=== PATIENT | female | born 1960 | race Caucasian/White ===

== ENCOUNTER 2017-07-08 03:56 | Emergency (ER) | payer OTHER ==
[2017-07-08] MEDS ORDERED: Albuterol/Ipratropium 3.0-0.5 MG/3 ML Neb Soln NEB ONE ×2 (04:17→05:01)
[2017-07-08] MEDS ORDERED: methylPREDNISolone Sodium Succinate 125 MG/2 ML SDV IM ONE (04:18)
--- NOTE | 2017-07-08 04:25 | EDM.PDOC ---
ED HPI GENERAL MEDICAL PROBLEM - General Chief Complaint: Respiratory Problem Stated Complaint: PERSISTENT COUGH Time Seen by Provider: 07/08/17 04:01 - History of Present Illness INITIAL COMMENTS - FREE TEXT/NARRATIVE: HISTORY AND PHYSICAL: History of present illness: The patient is a 57-year-old female with a history of asthma with which she has not had an asthma attack since she was in high school and presents with a persistent cough of 8 weeks. The patient says that she had a persistent dry cough and felt like she was having some wheezing and tried to deal with it on her own and then proceeded to go to an outside clinic mid May and had a chest x-ray that was read as negative and she was placed on a Z-Christian and prednisone and an albuterol inhaler. The prednisone was 10 mg a day for 7 days. The patient said that initially she felt much better and the symptoms seemed to return. The patient has an internal medicine doctor in [place] with whom she has followed for 10 years and with whom she has not had a conversation about these 8 weeks of symptoms. 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 She's not had a fever vomiting abdominal pain chest pain or shortness of breath but she says that she coughs so much and so hard at night that she can't sleep very well. She has been trying to hydrate and has no cardiac history no leg swelling or edema. The patient says that she feels like this is still her asthma and it is not improving. Patient denies any history of seasonal allergies or hayfever. The patient is only using an albuterol inhaler and does not have a spacer to get better delivery and she is on no preventative. Review of systems: As per history of present illness and below otherwise all systems reviewed and negative. Past medical history: As per history of present illness and as reviewed below otherwise noncontributory. Surgical history: As per history of present illness and as reviewed below otherwise noncontributory. Social history: No reported history of drug or alcohol abuse. Family history: As per history of present illness and as reviewed below otherwise noncontributory. Physical exam: General: Well-developed mildly overweight female who is nontoxic and speaks without breathlessness. Vital signs are noted by me HEENT: Atraumatic, normocephalic, pupils reactive, negative for conjunctival pallor or scleral icterus, mucous membranes moist, throat clear, neck supple, nontender, trachea midline. Lungs: Wheezing and diminished breath sounds throughout all garrett with no stridor or work of breathing, breath sounds equal bilaterally, chest nontender. Heart: S1S2, regular rate and rhythm no overt murmurs Abdomen: Soft, nondistended, nontender. NABS Pelvis: Deferred Genitourinary: Deferred. Rectal: Deferred. Extremities: Atraumatic, negative for cords or calf pain. Neurovascular unremarkable. Neuro: Awake, alert, oriented. Cranial nerves II through XII unremarkable. Cerebellum unremarkable. Motor and sensory unremarkable throughout. Exam nonfocal. Diagnostics: Chest x-ray Therapeutics: Duo neb Solu-Medrol spacer and teaching, Phenergan with codeine After the first duo neb patient is moving air much better and feels significantly improved but still having some wheezing. I will plan to give her second duo neb and a dose of Phenergan with codeine prior to discharge. I discussed with the patient and family at bedside at length the need to connect with her provider in [place] as she will be better equipped and able to continue the workup and follow-up on her current care plan. I talked to her about cool mist humidifier at sleep times, using a spacer for better delivery of her inhaler, possible nebulizer machine at home per her providers recommendations, higher dose prednisone therapy and longer taper, and possible testing that she may need to get as an outpatient with her provider pending this care plan. I will give her information about our clinics to follow-up and if she chooses Impression: Acute bronchospasm with history of asthma Definitive disposition and diagnosis as appropriate pending reevaluation and review of above. - Related Data Allergies Allergy/AdvReac Type Severity Reaction Status Date / Time Penicillins Allergy Cannot Verified 07/08/17 04:07 Remember Home Meds: Home Meds Levothyroxine 1 tab PO DAILY 07/08/17 [History] Lisinopril/Hydrochlorothiazide [Lisinopril-HCTZ 10-12.5 MG] 1 tab PO DAILY 07/08 [History] Simvastatin [Zocor] 1 tab PO BEDTIME 07/08/17 [History] Past Medical History Cardiovascular History: Reports: High Cholesterol, Hypertension Respiratory History: Reports: Asthma Endocrine/Metabolic History: Reports: Hypothyroidism - Past Surgical History GI Surgical History: Reports: Appendectomy Social & Family History - Family History Family Medical History: Noncontributory - Tobacco Use Smoking Status *Q: Never Smoker - Recreational Drug Use Recreational Drug Use: No ED ROS GENERAL - Review of Systems Review Of Systems: ROS reveals no pertinent complaints other than HPI. ED EXAM, GENERAL - Physical Exam Exam: See Below (See dictation) Course - Vital Signs Last Recorded V/S: Last Vital Signs Temp 36.6 C 07/08/17 03:56 Pulse 85 07/08/17 03:56 Resp 18 07/08/17 03:56 BP 156/90 H 07/08/17 03:56 Pulse Ox 95 07/08/17 03:56 - Orders/Labs/Meds Orders: Active Orders 24 hr Category Date Time Status Communication Order [RC] STAT Care 07/08/17 04:18 Active RT Aerosol Therapy [RC] ASDIRECTED Care 07/08/17 04:17 Active RT Aerosol Therapy [RC] ASDIRECTED Care 07/08/17 05:01 Active Chest 2V [CR] Stat Exams 07/08/17 04:18 Taken Meds: Medications Discontinued Medications Generic Name Dose Route Start Last Admin Trade Name Freq PRN Reason Stop Dose Admin Albuterol/Ipratropium 3 ml 07/08/17 04:17 07/08/17 04:23 Duoneb 3.0-0.5 Mg/3 Ml NEB 07/08/17 04:18 3 ml ONETIME ONE Administration Albuterol/Ipratropium 3 ml 07/08/17 05:01 07/08/17 05:07 Duoneb 3.0-0.5 Mg/3 Ml NEB 07/08/17 05:02 3 ml ONETIME ONE Administration Methylprednisolone Sodium Succinate 125 mg 07/08/17 04:18 07/08/17 04:29 Solu-Medrol IM 07/08/17 04:19 125 mg ONETIME ONE Administration Promethazine HCl/Codeine 10 ml 07/08/17 04:48 07/08/17 05:06 Phenergan With Codeine PO 07/08/17 04:49 10 ml ONETIME ONE Administration Departure - Departure Time of Disposition: 05:08 Disposition: Home, Self-Care 01 Condition: Good Clinical Impression: Acute bronchospasm, Acute asthma - Discharge Information Referrals: PCP,None [Primary Care Provider] - Forms: ED Department Discharge Additional Instructions: The following information is given to patients seen in the emergency department who are being discharged to home. This information is to outline your options for follow-up care. We provide all patients seen in our emergency department with a follow-up referral. The need for follow-up, as well as the timing and circumstances, are variable depending upon the specifics of your emergency department visit. If you don't have a primary care physician on staff, we will provide you with a referral. We always advise you to contact your personal physician following an emergency department visit to inform them of the circumstance of the visit and for follow-up with them and/or the need for any referrals to a consulting specialist. The emergency department will also refer you to a specialist when appropriate. This referral assures that you have the opportunity for followup care with a specialist. All of these measure are taken in an effort to provide you with optimal care, which includes your followup. Under all circumstances we always encourage you to contact your private physician who remains a resource for coordinating your care. When calling for followup care, please make the office aware that this follow-up is from your recent emergency room visit. If for any reason you are refused follow-up, please contact the [facility] emergency department at and ask to speak to the emergency department charge nurse. [facility] Primary care- Internal Medicine and Family [address] [id number] Please use your inhaler with spacer every 6 hours 1-2 puffs continuously for the next 2 days and then every 6 hours as needed. Please take prednisone starting the prescriptions later this evening. His cough medicine as you need for sleep and rest but only take it when you're at home. Push Hydration , coolmist humidifier at sleep times and please call your provider in [place] for follow-up as we discussed. You may also call our clinic here to get sooner follow-up for the care plan that we have started today. Return to ER as needed and as discussed. - My Orders Last 24 Hours: My Active Orders 07/08/17 04:17 RT Aerosol Therapy [RC] ASDIRECTED 07/08/17 04:18 Communication Order [RC] STAT Chest 2V [CR] Stat 07/08/17 05:01 RT Aerosol Therapy [RC] ASDIRECTED - Assessment/Plan Last 24 Hours: My Active Orders 07/08/17 04:17 RT Aerosol Therapy [RC] ASDIRECTED 07/08/17 04:18 Communication Order [RC] STAT Chest 2V [CR] Stat 07/08/17 05:01 RT Aerosol Therapy [RC] ASDIRECTED
[2017-07-08] MEDS ORDERED: Codeine/Promethazine 10-6.25 MG/5 ML Syrup 5 ML UD Cup PO ONE (04:48)
--- NOTE | 2017-07-09 13:50 | CR ---
EXAM DATE: 07/08/17 PATIENT'S AGE: 57 Patient: WENDI PEREIRA Facility: [place], [place] Site . Site : 1960 Study: XRay Chest [id number]/14/2018 4:54:28 AM Ordering Physician: Huang Maldonado Final Report: INDICATION: Shortness of Breath, Cough TECHNIQUE: Chest 2 views COMPARISON: None FINDINGS: Cardiovascular and mediastinum: Heart size and vasculature are normal in caliber and appearance. Mediastinum is within normal limits. Lungs and pleural spaces: Hyperinflation. No sign of pleural effusion. No pneumothorax. Bones and soft tissues: No significant findings. IMPRESSION: No acute cardiopulmonary disease Dictated by Viral Pagan MD @ 07/08/2017 5:04:28 AM Dictated by: Viral Pagan MD @ 07/08/2017 05:04:34 (Electronic Signature) Report Signed by Proxy. [email or web address]
== END 2017-07-08 05:33 | disposition home or self-care (01) ==
LOC: MW.ED 03:56
DX: J45.901 Unspecified asthma with (acute) exacerbation (principal); E78.00 Pure hypercholesterolemia, unspecified; I10 Essential (primary) hypertension; E03.9 Hypothyroidism, unspecified; Z79.899 Other long term (current) drug therapy
CPT/HCPCS: 71046; 96372; 99284; A9270; J2930; 99283